=== PATIENT | male | born 1930 | race Hispanic/Latino ===

== ENCOUNTER 2017-11-29 06:46 | Day surgery (SDC) | payer MEDICARE, OTHER ==
[2017-11-21 10:03] VITALS: BMI 41.3
[2017-11-29] MEDS ORDERED: Propofol 10 mg/ml Inj (20 ML) ONE (08:05)
[2017-11-29] MEDS ORDERED: Sodium Chloride 0.9% 1,000 ML IV SCH (08:15)
[2017-11-29 09:19] VITALS: BP 130/68; PULSE 59; RESP 18; TEMP 97.5; O2SAT 97
== END 2017-11-29 10:10 | disposition home or self-care (01) ==
LOC: ENDO 06:46
PROVIDERS: ATTEND Specialist
DX: D50.9 Iron deficiency anemia, unspecified (principal); K20.9 Esophagitis, unspecified; K29.70 Gastritis, unspecified, without bleeding
CPT/HCPCS: 43235; J2704; J7030